=== PATIENT | female | born 1990 | race Caucasian/White ===

== ENCOUNTER 2021-01-09 15:00 | Inpatient (IN) | payer OTHER ==
[2021-03-06 11:48] VITALS: BMI 37.8
[2021-03-09] MEDS ORDERED: Heparin 5,000 UNITS/ML VIAL ONE (08:05)
[2021-03-09] MEDS ORDERED: Lidocaine 1% w/Epinephrine 1:100K 20 ML VIAL ONE (10:47)
[2021-03-09] MEDS ORDERED: Bupivacaine 0.25% HCL 30 ML VIAL ONE (10:47)
[2021-03-09] MEDS ORDERED: Fentanyl 250 MCG/5 ML VIAL ONE (11:01)
[2021-03-09] MEDS ORDERED: PROPOFOL 200 MG/20 ML VIAL ONE (11:04)
[2021-03-09] MEDS ORDERED: Dexamethasone 20 MG/5 ML VIAL ONE (11:04)
[2021-03-09] MEDS ORDERED: Glycopyrrolate 0.2 MG/ML 5 ML SYRINGE ONE (11:04)
[2021-03-09] MEDS ORDERED: Ondansetron PF 4 MG/2 ML Vial ONE ×2 (11:04→13:10)
[2021-03-09] MEDS ORDERED: Rocuronium Bromide 10 MG/ML (10ML VIAL) ONE (11:04)
[2021-03-09] MEDS ORDERED: Ketorolac Tromethamine 30 MG/ML VIAL ONE (11:04)
[2021-03-09] MEDS ORDERED: Bacitracin Zinc Ointment 30 gm TUBE ONE (12:17)
[2021-03-09] MEDS ORDERED: Dextrose 5% in Water 1,000 ML IV PRN (12:25)
[2021-03-09] MEDS ORDERED: hydrALAZINE 20 MG/ML VIAL SLOW IVP PRN (12:25)
[2021-03-09] MEDS ORDERED: Ondansetron PF 4 MG/2 ML Vial IVP PRN (12:25)
[2021-03-09] MEDS ORDERED: Promethazine HCl 25 MG/ML VIAL IM PRN ×3 (12:25→13:36)
[2021-03-09] MEDS ORDERED: Dextrose 50% Abboject 50 ML SYRINGE SLOW IVP PRN (12:25)
[2021-03-09] MEDS ORDERED: Hydrocodone-Acetamin 15 ML UDCUP PO PRN (12:25)
[2021-03-09] MEDS ORDERED: diphenhydrAMINE 50 MG/ML VIAL IVP PRN ×2 (12:25→13:36)
[2021-03-09] MEDS ORDERED: D5 1/2 NS w/20 mEq KCL 1,000 ML ONE (12:34)
[2021-03-09] MEDS ORDERED: Promethazine HCl 25 MG/ML VIAL ONE (12:34)
[2021-03-09] MEDS ORDERED: Ondansetron HCl/PF 4 MG/2 ML Vial IVP PRN (12:35)
[2021-03-09] MEDS ORDERED: Promethazine HCl 25 MG/ML VIAL IVPB PRN (12:35)
[2021-03-09] MEDS ORDERED: HYDROmorphone 2 MG/ML VIAL SLOW IVP PRN (12:35)
[2021-03-09] MEDS ORDERED: Fentanyl 100 MCG/2 ML VIAL ONE (12:48)
[2021-03-09] MEDS ORDERED: diphenhydrAMINE 50 MG/ML VIAL IM PRN (13:36)
[2021-03-09] MEDS ORDERED: diphenhydrAMINE 25 MG CAP PO PRN (13:36)
[2021-03-09] MEDS ORDERED: Zolpidem Tartrate 5 MG TAB PO PRN (13:36)
[2021-03-09] MEDS ORDERED: fentaNYL Citrate/PF 2,000 MCG in Sodium Chloride 0.9% 60 ML IV PRN (13:36)
[2021-03-09] MEDS ORDERED: Naloxone HCl 0.4 mg/ml Vial IV PRN (13:36)
[2021-03-09] MEDS ORDERED: Communication Order-Pharmacy FS SCH (13:45)
[2021-03-09] MEDS ORDERED: HYDROmorphone 0.5 MG/0.5 ML SYRINGE ONE (13:59)
[2021-03-09] MEDS ORDERED: ceFAZolin Sodium/D5W 2 GM in Premix Bag 1 BAG IVPB SCH (16:00)
[2021-03-09] MEDS: Ondansetron PF 4 MG/2 ML Vial IVP PRN ×2 (16:42→21:31)
[2021-03-09] MEDS: Ketorolac Tromethamine 30 MG/ML VIAL IVP SCH ×2 (18:06→23:42)
[2021-03-09] MEDS: D5 1/2 NS w/20 mEq KCL 1,000 ML IV SCH ×3 (18:21→23:27)
[2021-03-09] MEDS ORDERED: Sodium Chloride 0.9% 500 ML IV SCH ×2 (20:00→20:15)
[2021-03-09] MEDS: CEFAZOLIN 2 GM, Admixture Fee 1 EACH in Sodium Chloride 0.9% 100 ML IVPB SCH (21:30)
[2021-03-10] MEDS: CEFAZOLIN 2 GM, Admixture Fee 1 EACH in Sodium Chloride 0.9% 100 ML IVPB SCH ×3 (03:43→10:54)
[2021-03-10 04:36] LABS: #Lymphocytes 1.9 thou/uL (1.20-3.40); #Monocytes 0.6 thou/uL (0.11-0.59); #Neutrophils 7.5 thou/uL (1.40-6.50); %Basophils 0.2 % (0.0-1.0); %Lymphocytes 19.1 % (21.0-51.0); %Monocytes 5.7 % (0.0-10.0); %Neutrophils 75.1 % (42.0-75.0); Hemoglobin 11.4 g/dL (12.0-16.0); Mean Corpuscular HGB CONC 33.4 g/dL (32.0-36.0); Mean Corpuscular Hemoglobin 27.4 pg (27.0-31.0); Mean Corpuscular Volume 82.1 fL (78.0-98.0); Mean Platelet Volume 7.4 fL (7.4-10.4); Platelet Count 409 thou/uL (130-400); RBC Distribution Width 13.4 % (11.5-14.5); Red Blood Cell (RBC) Count 4.15 mill/uL (4.20-5.40)
[2021-03-10 05:09] LABS: Anion Gap 12 mmol/L (10-20); BUN (Urea Nitrogen) 7 mg/dL (7.0-18.7); Calc. Creatinine Clearance 221 mL/min (70-130); Calcium 9.2 mg/dL (7.8-10.44); Carbon Dioxide 20 mmol/L (22-29); Chloride 109 mmol/L (98-107); Glucose 111 mg/dL (70-105); Potassium 4.3 mmol/L (3.5-5.1); Sodium 137 mmol/L (136-145)
[2021-03-10] MEDS: Ketorolac Tromethamine 30 MG/ML VIAL IVP SCH ×2 (05:25→11:51)
[2021-03-10] MEDS: Ondansetron PF 4 MG/2 ML Vial IVP PRN (08:56)
[2021-03-10] MEDS ORDERED: Pantoprazole 40 MG VIAL IVP SCH (09:00)
[2021-03-10] MEDS ORDERED: Enoxaparin Sodium 40 MG/0.4 ML SYRINGE SC SCH (09:00)
[2021-03-10] MEDS ORDERED: Hydrocodone-Acetamin 15 ML UDCUP PO PRN (10:20)
[2021-03-10 12:17] VITALS: BP 131/85; TEMP 99.1
== END 2021-03-10 15:15 | disposition home or self-care (01) | DRG 621 ==
LOC: SURG A 03-09 07:27 → SJJU 03-09 15:54
PROVIDERS: ADMIT Surgery; ATTEND Surgery
PROC: 0DB64Z3 Excision of Stomach, Percutaneous Endoscopic Approach, Vertical (ICD-10-PCS; principal; 2021-03-09)
PROC: 0DJ08ZZ Inspection of Upper Intestinal Tract, Via Natural or Artificial Opening Endoscopic (ICD-10-PCS; 2021-03-09)
DX: E66.01 Morbid (severe) obesity due to excess calories (principal); I10 Essential (primary) hypertension; M19.90 Unspecified osteoarthritis, unspecified site; F41.9 Anxiety disorder, unspecified; Z88.8 Allergy status to other drugs, medicaments and biological substances; Z79.899 Other long term (current) drug therapy; Z68.41 Body mass index [BMI] 40.0-44.9, adult
CPT/HCPCS: 36415; 80048; 85025; 88307; 94760; C9113; J0690; J1100; J1170; J1200; J1644; J1650; J1885; J2405; J2550; J2704; J3010; J3480; J3490; J7030; S0020

== ENCOUNTER 2021-03-05 15:41 | Outpatient (CLI) | payer SELFPAY ==
[2021-03-06 12:08] LABS: SARS-CoV-2 PCR by NAA Not Detected (NotDetected)
== END 2021-03-05 15:42 | disposition home or self-care (01) ==
LOC: LABBT 15:41
PROVIDERS: ATTEND Surgery
DX: Z01.818 Encounter for other preprocedural examination (principal); E66.01 Morbid (severe) obesity due to excess calories; Z20.822 Contact with and (suspected) exposure to COVID-19
CPT/HCPCS: 93005; 93010; U0003; U0005